=== PATIENT | female | born 1930 | race Caucasian/White ===

== ENCOUNTER 2017-08-12 13:17 | Inpatient (IN) | payer MEDICARE, BC ==
[~2017-08-12] VITALS: Ht 170.2 cm; Wt 70.0 kg
[~2017-08-12 13:17] MED LIST: ALENDRONATE SOD70 MG OR; ALENDRONATE SOD70 MG PO; ALLEGRA-D 2424 HOUR PO; FLONASE NASAL50 MCG; L-THYROXINE OR; LANSOPRAZOLE30 MG PO; LORTAB 10 PO; LOVASTATIN20 MG PO; LOVASTATIN40 MG PO; LYRICA75 MG PO; MEDDOSEPAK PO; METOPROL TAR25 MG PO; METOPROL TAR50 MG PO; MEVACOR20 MG PO; SYMBICORT 80-4.5MCG IN; SYNTHROID50 MCG PO; TRICOR145 MG PO; VENTOLIN HF1 IN; ZPAK PO; ZYRTEC-D AL1 OR; ZYRTEC-D AL1 PO
[2017-08-12] MEDS ORDERED: LYRICA50 MG PO (14:20)
[2017-08-12 14:46] LABS: HEMATOCRIT 40.5 % (37.0-47.0); HEMOGLOBIN 13.5 g/dl (12.0-16.0); IMMATURE GRANULOCYTES 0.7 % (0.0-1.0); MEAN CELL VOLUME 97.1 fL CALC (80.0-100.0); MEAN CORPUSCULAR HGB 32.4 pG CALC (26.0-32.0); MEAN CORPUSCULAR HGB CONC 33.3 g/L CALC (32.0-36.0); NEUT# 10.13 thou/uL (2.00-7.15); RED BLOOD COUNT 4.17 mill/uL (4.20-5.60); RED CELL DISTRI WIDTH 13.1 % (11.5-15.5)
[2017-08-12 15:04] LABS: ACT PARTIAL THROMBO TIME 25.7 SECONDS (20.0-32.5)
[2017-08-12 15:06] LABS: ALBUMIN 3.9 g/dL (3.2-5.0); ALKALINE PHOSPHATASE 67 u/l (38-126); ANION GAP 17 (6-22 (CALC)); BUN 15 mg/dL (8-23); BUN/CREATININE RATIO 24 (12-20 (CALC)); CARBON DIOXIDE 24 mmol/l (22-30); CHLORIDE 98 mmol/l (95-108); CREATININE 0.6 mg/dL (0.5-1.0); GFR > 60 ML/MIN (>=60 (CALC)); GFR FOR AFR.AMER. > 60 ML/MIN (>=60 (CALC)); POTASSIUM 3.8 mmol/l (3.5-5.1); SGOT/AST 24 u/l (9-36); SGPT/ALT 37 u/l (11-66); SODIUM 136 mmol/l (137-146); TOTAL PROTEIN 6.8 g/dL (6.3-8.2)
[2017-08-12 15:13] LABS: PROTHROMBIN TIME 10.9 SECONDS (9.0-12.5)
[2017-08-12 15:52] LABS: URINE BILIRUBIN - DIPSTICK NEGATIVE (NEGATIVE); URINE BLOOD DIPSTICK NEGATIVE (NEGATIVE); URINE COLOR YELLOW; URINE GLUCOSE - DIPSTICK NEGATIVE (NEGATIVE); URINE KETONE NEGATIVE (NEGATIVE); URINE LEUK ESTERASE NEGATIVE (NEGATIVE); URINE NITRITE - DIPSTICK NEGATIVE (Negative); URINE PROTEIN - DIPSTICK NEGATIVE (NEG-TRACE); URINE UROBILINOGEN - DIPSTICK 0.2 E.U./dL (0.2)
[2017-08-12 15:54] LABS: URINE CLARITY CLEAR
[2017-08-12 18:13] VITALS: BP 144/63
[2017-08-13] VITALS (10 sets, daily range): BP systolic 102–162; BP diastolic 46–77
[2017-08-13 05:58] LABS: ANION GAP 16 (6-22 (CALC)); BUN 14 mg/dL (8-23); BUN/CREATININE RATIO 20 (12-20 (CALC)); CARBON DIOXIDE 23 mmol/l (22-30); CHLORIDE 99 mmol/l (95-108); CREATININE 0.7 mg/dL (0.5-1.0); GFR > 60 ML/MIN (>=60 (CALC)); GFR FOR AFR.AMER. > 60 ML/MIN (>=60 (CALC)); MAGNESIUM 1.7 mg/dL (1.6-2.3); POTASSIUM 4.4 mmol/l (3.5-5.1); SODIUM 133 mmol/l (137-146)
[2017-08-13 06:16] LABS: HEMATOCRIT 34.8 % (37.0-47.0); IMMATURE GRANULOCYTES 0.8 % (0.0-1.0); MEAN CELL VOLUME 97.5 fL CALC (80.0-100.0); MEAN CORPUSCULAR HGB 32.2 pG CALC (26.0-32.0); NEUT# 5.59 thou/uL (2.00-7.15); RED BLOOD COUNT 3.57 mill/uL (4.20-5.60); RED CELL DISTRI WIDTH 13.2 % (11.5-15.5)
[2017-08-13 06:17] LABS: HEMOGLOBIN 11.5 g/dl (12.0-16.0)
[2017-08-14 00:10] VITALS: BP 177/88
[2017-08-14 05:13] LABS: HEMATOCRIT 33.2 % (37.0-47.0); HEMOGLOBIN 11.6 g/dl (12.0-16.0)
[2017-08-14 05:15] LABS: URINE BILIRUBIN - DIPSTICK NEGATIVE (NEGATIVE); URINE BLOOD DIPSTICK NEGATIVE (NEGATIVE); URINE COLOR YELLOW; URINE GLUCOSE - DIPSTICK 100 mg/dL (NEGATIVE); URINE KETONE NEGATIVE (NEGATIVE); URINE LEUK ESTERASE NEGATIVE (NEGATIVE); URINE NITRITE - DIPSTICK NEGATIVE (Negative); URINE PROTEIN - DIPSTICK NEGATIVE (NEG-TRACE); URINE UROBILINOGEN - DIPSTICK 0.2 E.U./dL (0.2)
[2017-08-14 05:17] LABS: URINE CLARITY CLEAR
[2017-08-14 05:43] VITALS: BP 124/58
[2017-08-14 07:55] VITALS: BP 138/45
[2017-08-14 15:25] VITALS: BP 90/56
[2017-08-14 19:35] VITALS: BP 132/64
[2017-08-14 23:46] VITALS: BP 131/62
[2017-08-15 03:53] VITALS: BP 144/67
[2017-08-15 05:18] LABS: ALKALINE PHOSPHATASE 65 u/l (38-126); ANION GAP 14 (6-22 (CALC)); BILIRUBIN, TOTAL 1.3 mg/dL (0.0-1.4); BUN 9 mg/dL (8-23); BUN/CREATININE RATIO 15 (12-20 (CALC)); CARBON DIOXIDE 23 mmol/l (22-30); CHLORIDE 95 mmol/l (95-108); CREATININE 0.6 mg/dL (0.5-1.0); GFR > 60 ML/MIN (>=60 (CALC)); GFR FOR AFR.AMER. > 60 ML/MIN (>=60 (CALC)); MAGNESIUM 1.8 mg/dL (1.6-2.3); POTASSIUM 4.1 mmol/l (3.5-5.1); SGOT/AST 28 u/l (9-36); SGPT/ALT 27 u/l (11-66); SODIUM 128 mmol/l (137-146); TOTAL PROTEIN 5.6 g/dL (6.3-8.2)
[2017-08-15 05:20] LABS: ALBUMIN 2.8 g/dL (3.2-5.0)
[2017-08-15 05:42] LABS: HEMATOCRIT 35.8 % (37.0-47.0); HEMOGLOBIN 11.9 g/dl (12.0-16.0); IMMATURE GRANULOCYTES 0.8 % (0.0-1.0); MEAN CELL VOLUME 97.3 fL CALC (80.0-100.0); MEAN CORPUSCULAR HGB 32.3 pG CALC (26.0-32.0); MEAN CORPUSCULAR HGB CONC 33.2 g/L CALC (32.0-36.0); NEUT# 10.26 thou/uL (2.00-7.15); RED BLOOD COUNT 3.68 mill/uL (4.20-5.60); RED CELL DISTRI WIDTH 13.5 % (11.5-15.5)
[2017-08-15 07:56] VITALS: BP 129/63
[2017-08-15 15:03] VITALS: BP 129/42
[2017-08-15 19:00] VITALS: BP 140/67
[2017-08-16 04:00] VITALS: BP 138/66
[2017-08-16 05:12] LABS: HEMATOCRIT 33.7 % (37.0-47.0); HEMOGLOBIN 11.2 g/dl (12.0-16.0); IMMATURE GRANULOCYTES 0.9 % (0.0-1.0); MEAN CELL VOLUME 96.8 fL CALC (80.0-100.0); MEAN CORPUSCULAR HGB 32.2 pG CALC (26.0-32.0); MEAN CORPUSCULAR HGB CONC 33.2 g/L CALC (32.0-36.0); NEUT# 8.97 thou/uL (2.00-7.15); RED BLOOD COUNT 3.48 mill/uL (4.20-5.60); RED CELL DISTRI WIDTH 13.2 % (11.5-15.5)
[2017-08-16 05:21] LABS: ALBUMIN 2.6 g/dL (3.2-5.0); ALKALINE PHOSPHATASE 79 u/l (38-126); ANION GAP 15 (6-22 (CALC)); BUN 11 mg/dL (8-23); BUN/CREATININE RATIO 19 (12-20 (CALC)); CARBON DIOXIDE 24 mmol/l (22-30); CHLORIDE 96 mmol/l (95-108); CREATININE 0.6 mg/dL (0.5-1.0); GFR > 60 ML/MIN (>=60 (CALC)); GFR FOR AFR.AMER. > 60 ML/MIN (>=60 (CALC)); MAGNESIUM 1.8 mg/dL (1.6-2.3); POTASSIUM 3.9 mmol/l (3.5-5.1); SGOT/AST 20 u/l (9-36); SGPT/ALT 25 u/l (11-66); SODIUM 131 mmol/l (137-146); TOTAL PROTEIN 5.3 g/dL (6.3-8.2)
[2017-08-16 08:45] VITALS: BP 130/48
[2017-08-16 10:36] LABS: URINE BILIRUBIN - DIPSTICK NEGATIVE (NEGATIVE); URINE BLOOD DIPSTICK NEGATIVE (NEGATIVE); URINE COLOR YELLOW; URINE GLUCOSE - DIPSTICK NEGATIVE (NEGATIVE); URINE KETONE NEGATIVE (NEGATIVE); URINE LEUK ESTERASE TRACE (NEGATIVE); URINE NITRITE - DIPSTICK NEGATIVE (Negative); URINE PROTEIN - DIPSTICK NEGATIVE (NEG-TRACE)
[2017-08-16 10:54] LABS: URINE CLARITY CLEAR
[2017-08-16] MEDS ORDERED: XARELTO10 MG PO (15:04)
[2017-08-16] MEDS ORDERED: PERCOCET 10/31 COMBO PO (15:04)
[2017-08-16 15:35] VITALS: BP 134/62
== END 2017-08-16 18:45 | DRG 470 ==
LOC: ED 13:17 → ED-I 16:50 → ED 17:17 → MS2 17:18
PROVIDERS: Family Medicine; Internal Medicine; Nurse Practitioner Family; Orthopaedic Surgery Sports Medicine; ADMIT Internal Medicine; ATTEND Internal Medicine
PROC: 0T9B70Z Drainage of Bladder with Drainage Device, Via Natural or Artificial Opening (ICD-10-PCS; principal; 2017-08-12)
PROC: 0SRS0JZ Replacement of Left Hip Joint, Femoral Surface with Synthetic Substitute, Open Approach (ICD-10-PCS; 2017-08-13)
DX: S72.012A Unspecified intracapsular fracture of left femur, initial encounter for closed fracture (principal); E87.1 Hypo-osmolality and hyponatremia; D62 Acute posthemorrhagic anemia; R33.9 Retention of urine, unspecified; E03.9 Hypothyroidism, unspecified; I10 Essential (primary) hypertension; G25.81 Restless legs syndrome; I25.2 Old myocardial infarction; E78.5 Hyperlipidemia, unspecified; M17.0 Bilateral primary osteoarthritis of knee; W19.XXXA Unspecified fall, initial encounter; Y92.009 Unspecified place in unspecified non-institutional (private) residence as the place of occurrence of the external cause; Z88.6 Allergy status to analgesic agent
CPT/HCPCS: C9290; J1650; J2710

== ENCOUNTER → 2018-06-25 | Outpatient (REF) | payer MEDICARE, BC ==
[~2018-06-25] MED LIST changes: +LYRICA50 MG PO; +PERCOCET 10/31 COMBO PO; +XARELTO10 MG PO
[2018-06-25 08:25] LABS: RED BLOOD COUNT 4.95 mill/uL (4.20-5.60)
[2018-06-25 08:26] LABS: HEMOGLOBIN 15.1 g/dl (12.0-16.0); IMMATURE GRANULOCYTES 0.5 % (0.0-5.0); MEAN CELL VOLUME 95.2 fL CALC (80.0-100.0); MEAN CORPUSCULAR HGB 30.5 pG CALC (26.0-32.0); MEAN CORPUSCULAR HGB CONC 32.1 g/L CALC (32.0-36.0); NEUT# 4.99 thou/uL (2.00-7.15); RED CELL DISTRI WIDTH 14.5 % (11.5-15.5)
[2018-06-25 08:27] LABS: HEMATOCRIT 47.1 % (37.0-47.0)
[2018-06-25 08:35] LABS: ALBUMIN 4.2 g/dL (3.2-5.0); ALKALINE PHOSPHATASE 67 u/l (38-126); ANION GAP 14 (6-22 (CALC)); BILIRUBIN, TOTAL 1.2 mg/dL (0.0-1.4); BUN 15 mg/dL (8-23); BUN/CREATININE RATIO 20 (12-20 (CALC)); CALCULATED LDLCHOLESTEROL 105 mg/dL (62-129 (CALC)); CARBON DIOXIDE 28 mmol/l (22-30); CHLORIDE 100 mmol/l (95-108); CREATININE 0.8 mg/dL (0.5-1.0); GFR > 60 ML/MIN (>=60 (CALC)); GFR FOR AFR.AMER. > 60 ML/MIN (>=60 (CALC)); HDL CHOLESTEROL 65 mg/dL (>=40); POTASSIUM 4.4 mmol/l (3.5-5.1); SGOT/AST 26 u/l (9-36); SODIUM 138 mmol/l (137-146); TOTAL CHOLESTEROL 192 mg/dl (0-199); TOTAL TRIGLYCERIDES 112 mg/dl (30-149); VLDL CHOLESTROL 22 mg/dl (0-48 (CALC))
== END | disposition home or self-care (01) ==
LOC: LAB 07:06
PROVIDERS: ATTEND Internal Medicine Geriatric Medicine
DX: I10 Essential (primary) hypertension (principal); E03.9 Hypothyroidism, unspecified